=== PATIENT | female | born 1955 | race Hispanic/Latino ===

== ENCOUNTER 2022-02-03 10:28 | Inpatient (IN) | payer SELFPAY ==
[2022-02-03 11:09] LABS: #Eosinphils 0.1 thou/uL (0.0-0.7); #Lymphocytes 1.4 thou/uL (1.20-3.40); #Monocytes 0.3 thou/uL (0.11-0.59); #Neutrophils 4.6 thou/uL (1.40-6.50); %Basophils 0.2 % (0.0-1.0); %Eosinophils 1.4 % (0.0-10.0); %Lymphocytes 21.5 % (21.0-51.0); %Monocytes 5.4 % (0.0-10.0); %Neutrophils 71.5 % (42.0-75.0); Hemoglobin 13.8 g/dL (12.0-16.0); Mean Corpuscular HGB CONC 32.4 g/dL (32.0-36.0); Mean Corpuscular Volume 89.3 fl (78.0-98.0); Mean Platelet Volume 7.4 fL (7.4-10.4); Platelet Count 354 10x3/uL (130-400); Red Blood Cell (RBC) Count 4.78 mill/uL (4.20-5.40); White Blood Cell (WBC) Count 6.4 10x3/uL (4.8-10.8)
[2022-02-03 11:46] LABS: ALT (SGPT) 16 U/L (8-55); AST (SGOT) 15 U/L (5-34); Albumin 4.1 g/dL (3.4-4.8); Alkaline Phosphatase 170 U/L (40-110); Anion Gap 15 mmol/L (10-20); BUN (Urea Nitrogen) 12 mg/dL (9.8-20.1); Bilirubin, Total 0.3 mg/dL (0.2-1.2); Calc. Creatinine Clearance 0 mL/min (70-130); Calcium 9.2 mg/dL (7.8-10.44); Carbon Dioxide 24 mmol/L (23-31); Chloride 104 mmol/L (98-107); Estimated GFR 64; Globulin 2.8 g/dL (2.4-3.5); Glucose 396 mg/dL (80-115); Potassium 4.5 mmol/L (3.5-5.1); Protein, Total 6.9 g/dL (5.8-8.1); Sodium 138 mmol/L (136-145)
[2022-02-03] MEDS ORDERED: Meclizine HCl 25 MG TAB ONE (13:31)
[2022-02-03] MEDS ORDERED: Aspirin 325 MG TAB ONE (13:31)
[2022-02-03] MEDS ORDERED: Dextrose 50% Abboject 50 ML SYRINGE SLOW IVP PRN (13:55)
[2022-02-03] MEDS ORDERED: Insulin Regular 300 UNITS/3 ML VIAL SC PRN ×2 (13:55→20:15)
[2022-02-03] MEDS ORDERED: Dextrose 5% in Water 1,000 ML IV PRN (13:55)
[2022-02-03 14:30] LABS: Bilirubin Negative (Negative); Blood, Urine Negative (Negative); Glucose, Urine (Dipstick) >=1000 mg/dL (Negative); Ketone, Urine Negative (Negative); Leukocyte Negative (Negative); Nitrite Negative (Negative); Protein, Urine (Dipstick) Negative (Neg-Trace); Specific Gravity, Urine 1.015 (1.005-1.030); Urobilinogen 0.2 mg/dL (Less than 2); pH, Urine 6.5 (5.0-9.0)
[2022-02-03 14:33] LABS: Clarity Clear (Clear)
[2022-02-03 14:37] LABS: Hemoglobin A1c 9.7 % (4.0-6.0)
[2022-02-03 14:38] LABS: Bacteria/HPF Rare-Few HPF (None Seen); RBC/HPF 0-3 HPF (0-3); WBC/HPF 0-3 HPF (0-3)
[2022-02-03 18:46] VITALS: BMI 25.8
[2022-02-03] MEDS: Amlodipine 5 MG TAB PO SCH (21:04)
[2022-02-03] MEDS: Atorvastatin Calcium 40 MG TAB PO SCH (21:04)
[2022-02-04 07:21] LABS: Cardiac Risk 4.5 (Less than 4.5)
[2022-02-04] MEDS ORDERED: Lisinopril 20 MG TAB PO SCH (09:00)
[2022-02-04] MEDS: Enoxaparin Sodium 40 MG/0.4 ML SYRINGE SC SCH (09:07)
[2022-02-04] MEDS: Aspirin 81 mg Enteric Coated Tablet PO SCH (09:08)
[2022-02-04] MEDS: Clopidogrel Bisulfate 75 MG TAB PO SCH (09:08)
[2022-02-04] MEDS: Insulin Regular 300 UNITS/3 ML VIAL SC PRN ×2 (11:06→17:20)
[2022-02-04] MEDS: Atorvastatin Calcium 40 MG TAB PO SCH (20:55)
[2022-02-04] MEDS: Amlodipine 5 MG TAB PO SCH (20:55)
[2022-02-04] MEDS ORDERED: Insulin Glargine 30 UNITS/0.3 ML VIAL SC SCH (21:00)
[2022-02-05] MEDS: Insulin Regular 300 UNITS/3 ML VIAL SC PRN (05:44)
[2022-02-05] MEDS ORDERED: metFORMIN 500 MG TAB PO SCH (08:00)
[2022-02-05] MEDS: Aspirin 81 mg Enteric Coated Tablet PO SCH (08:38)
[2022-02-05] MEDS: Clopidogrel Bisulfate 75 MG TAB PO SCH (08:38)
[2022-02-05] MEDS: Enoxaparin Sodium 40 MG/0.4 ML SYRINGE SC SCH ×2 (08:38→08:42)
[2022-02-05 12:22] VITALS: TEMP 98.4
[2022-02-05 12:24] VITALS: BP 145/88
[2022-02-05] MEDS ORDERED: glipiZIDE 10 MG TAB PO SCH (16:30)
[2022-02-05] MEDS ORDERED: Amlodipine 5 MG TAB PO SCH (21:00)
== END 2022-02-05 17:15 | disposition home or self-care (01) | DRG 65 ==
LOC: ERS 10:28 → ERHOLD 13:13 → NEURO 18:36 → OBSVTOIN 02-04 10:38
PROVIDERS: ADMIT Student in an Organized Health Care Education/Training Program; ATTEND Internal Medicine
DX: I63.81 Other cerebral infarction due to occlusion or stenosis of small artery (principal); G81.94 Hemiplegia, unspecified affecting left nondominant side; I13.0 Hypertensive heart and chronic kidney disease with heart failure and stage 1 through stage 4 chronic kidney disease, or unspecified chronic kidney disease; I50.32 Chronic diastolic (congestive) heart failure; E78.5 Hyperlipidemia, unspecified; I34.0 Nonrheumatic mitral (valve) insufficiency; N18.2 Chronic kidney disease, stage 2 (mild); E11.22 Type 2 diabetes mellitus with diabetic chronic kidney disease; R29.810 Facial weakness; R29.700 NIHSS score 0; Z20.822 Contact with and (suspected) exposure to COVID-19; Z79.84 Long term (current) use of oral hypoglycemic drugs; Z83.3 Family history of diabetes mellitus; Z82.49 Family history of ischemic heart disease and other diseases of the circulatory system; Z79.899 Other long term (current) drug therapy
CPT/HCPCS: 36415; 36416; 70450; 70551; 80053; 80061; 81003; 83036; 84484; 85025; 93005; 93306; 93880; 96360; 96372; G0378; J1650; J1815; U0003; U0005